=== PATIENT | male | born 1965 | race Caucasian/White ===

== ENCOUNTER 2024-04-30 20:34 | Emergency (ER) | payer OTHER, SELFPAY ==
[2024-04-30 20:49] VITALS: BP 153/89
--- NOTE | 2024-04-30 23:54 | ED.GENMED ---
History of Present Illness
<Walsh (Lenka) Geraldosylvester MINISTERIO - Last Filed: 05/01/24 04:51>
General
Chief Complaint: Skin Problem
Source: patient
Exam Limitations: none
Time Seen by Provider: 04/30/24 23:54
Nursing documentation reviewed up to this point in time: agreed with
History of Present Illness
History of Present Illness:
Pt is a 58 yo male with no pertinent PMHx who presents to the ED with concerns over L forearm bruising and tightness x 4d. Pt states last Monday (04/26) he donated platelets with the Quat-E at 1100. The R arm was used as the outlet, he denies
complications with the R AC IV puncture. His L AC was used as the return. During the donation, the rivet spinner noticed his IV infiltrated. Elbow flexion 'felt tight' and he describes decreased L arm flexion ROM. He notes [id number]-procedure he
developed chills and felt weak. 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
L arm. By the end of the day he developed a 5cm x 10cm oval bruise form near the first puncture site on the L arm. He had some medical friends evaluate him and suggest it may be a reaction to the 'chemicals injected during plasma donation to thin
the returning blood'. Pt presents concerned that the bruise changed from a blue/brown color to a dusky red color within the day. He denies any other arm injury, any lightheadedness, dizziness, fevers, numbness or tingling to his digits, decreased
hand strength to either hand. Endorses feeling chills today.
Upon arrival, the RN noticed a red streak originating from the IV puncture site on the R AC. He notes a superficial 3-4cm healing laceration to his R anterior forearm from the tree work on Monday, that aligns with the distal end of the red streaking.
Pt takes fish oil capsules and vitamin D daily. He stopped his fish oil Monday when he noticed the L arm bruising.
No hx of blood disorders or clotting.
Past History
<MINISTERIO Cha (Lenka) - Last Filed: 05/01/24 04:51>
Past History
ED Past Medical History: None
ED Past Surgical History: Orthopedic
Social History
Tobacco: Non-smoker
Alcohol: Daily (one beer a night)
Personal:
Living: with family
Employment: Employed
Phy Exam
<MINISTERIO Cha (Lenka) - Last Filed: 05/01/24 04:51>
General Physical Exam
General Presentation: well appearing and no apparent distress
General age: appears stated age
General Skin: warm and dry
General Habitus: normal
General Mental: alert
General Hydration: appears well hydrated
Cardiovascular Exam
Cardiovascular Exam: regular rate/rhythm and normal peripheral pulses
Pulmonary Exam
Pulmonary Exam: lungs clear, no respiratory distress, no rhonchi and no cough
Neurological Exam
Neurological Exam: alert, oriented x3, no sensory deficits and speech normal
Musculoskeletal Exam
Musculoskeletal Exam: neuro vasc intact
Skin Exam
Skin Exam: other (faint red streaking from R antecubital fossa to distal third of R forearm. 10cm x 5cm ecchymosis to L antecubital fossa to proximal third of Lforearm.)
Course
<MINISTERIO Cha (Lenka) - Last Filed: 05/01/24 04:51>
Orders/Labs/Results
Orders:
Orders
05/01/24 00:00
US Periph Venous UPPER Ext Dalton Urgent
Reason For Exam: R streaking, L swelling after IV attempts
Vital Signs
Initial and Last Documented VS:
Initial Vital Signs
Temp Pulse Resp BP Pulse Ox
98.6 F 85 19 153/89 99
04/30/24 20:49 04/30/24 20:49 04/30/24 20:49 04/30/24 20:49 04/30/24 20:49
Last Documented Vital Signs
Temp Pulse Resp BP Pulse Ox
98.1 F 78 18 124/72 96
05/01/24 00:00 05/01/24 02:00 05/01/24 02:00 05/01/24 02:00 05/01/24 02:00
<Osmel Perez DO - Last Filed: 05/01/24 01:39>
Orders/Labs/Results
Orders:
Orders
05/01/24 00:00
US Periph Venous UPPER Ext Dalton Urgent
Reason For Exam: R streaking, L swelling after IV attempts
Vital Signs
Initial and Last Documented VS:
Initial Vital Signs
Temp Pulse Resp BP Pulse Ox
98.6 F 85 19 153/89 99
04/30/24 20:49 04/30/24 20:49 04/30/24 20:49 04/30/24 20:49 04/30/24 20:49
Last Documented Vital Signs
Temp Pulse Resp BP Pulse Ox
98.1 F 78 18 124/72 96
05/01/24 00:00 05/01/24 02:00 05/01/24 02:00 05/01/24 02:00 05/01/24 02:00
<MINISTERIO Cha (Lenka) - Last Filed: 05/01/24 04:51>
MDM/Problems Addressed
Differential Diagnosis Includes:
DDx: phlebitis vs ecchymosis 2/2 IV puncture vs venous thrombosis
Will obtain B/L arm ultrasounds to evaluate venous structure.
<MINISTERIO Cha (Lenka) - Last Filed: 05/01/24 04:51>
*Critical Care Note
Total Time (30-74mins, 75-104mins- exclusive of procedures): Not Applicable
<Osmel Perez DO - Last Filed: 05/01/24 01:39>
Update Note
Update Note:
Bilateral upper extremity ultrasound negative by verbal report
ED Attending Note
<MINISTERIO Cha (Lenka) - Last Filed: 05/01/24 04:51>
-
Portions of this chart may have been created with voice recognition software.� Occasional wrong word or��sound alike� substitutions may have occurred due to the inherent limitations of voice recognition software.
<Osmel Perez DO - Last Filed: 05/01/24 01:39>
ED Attending Note
Patient seen and examined by attending physician: Yes
I performed the substantive portion of visit, reviewed & personally made and approve the management plan that is documented in note by myself or MADHURI.: Yes
ED Attending Note:
Pleasant 58-year-old male that presents with bruising on his left arm. He donated platelets on Monday. The catheter in his left arm infiltrated. They switched veins and continue with the procedure. He did have some bruising. Today turned red.
He videoconference with a primary care provider who advised him to come into the emergency department to be evaluated. Patient denies any pain or any arm injury. Denies numbness or tingling. Patient was seen in conjunction with the PA student. I
have reviewed and agree with the history and treatment plan presented. On my independent physical exam, patient is awake, alert, and oriented x3. There is a small area of erythema that is blanchable on the left forearm. Patient states that this
initially started out as ecchymosis but then turned red. Good distal pulses. Full range of motion in the arm and elbow.
I feel that this is either reaction to the infiltration or just ecchymosis from the IV. Patient will continue to observe it. There is no evidence of DVT on ultrasound. Patient will follow-up as needed.
Discharge Plan
Departure
Patient Disposition: Home (Routine Discharge)
Date of Disposition: 05/01/24
Time of Disposition: 01:37
Patient with high blood pressure during this ER visit?: Yes
Condition: Good
Discharge Problem:
IV infiltration
Instructions: Wound Care (DC), BLOOD PRESSURE
Referrals:
Ej Bennett DO [Family Provider] -
Activity Restrictions/Additional Instructions:
It was a pleasure meeting you and taking part in your care. We hope for your continued healing and wellness.
Please read discharge instructions in their entirety. However, they are for general education and may not describe your exact diagnosis at discharge. Information on your ER visit and medical conditions were discussed with you along with appropriate
follow up information...
If indicated, please take your medications as instructed and indicated on discharge paperwork.
Please schedule a follow up appointment as directed. Call to schedule an appointment
Please return to the emergency department with ANY change in, persisting, or worsening of symptoms. If any of your symptoms do not improve, or persist, or become more severe within 6-12 hours, please return to the emergency department for further
care.
Please return to the emergency department if you develop a headache, neck pain/stiffness, fever greater than 100.4F, chest pain, shortness of breath, persistent nausea, vomiting, slurred speech, difficulty walking, numbness/tingling, weakness, signs
of infection or any other symptoms that are worrisome to you.
If you have any questions or concerns please do not hesitate to call the Hospital at or E-mail me directly at [email or web address]
Interventions
Interventions:
*Risk Screen - Suicide Last Done: 04/30/24 20:49
*General Assessment Last Done: 04/30/24 20:49
*Neglect/Abuse Screening Last Done: 04/30/24 20:49
ED- Fall Risk Assessment Last Done: 04/30/24 23:55
*ED COVID-19 Vaccine History Last Done: 04/30/24 20:49
*Nursing Disposition Last Done: 05/01/24 02:00
ED-Skin Assessment Last Done: 04/30/24 23:55
Discharge Date and Time
Discharge Date/Time: 05/01/24 02:00
Print Language: MALAWIAN
[2024-05-01] VITALS: BP 128/72
--- NOTE | 2024-05-01 00:01 | EDRN ---
[place]asion [place].
[2024-05-01 02:00] VITALS: BP 124/72
== END 2024-05-01 02:00 | disposition home or self-care (01) ==
LOC: EMR 20:34
PROVIDERS: EMERGENCY PHYSICIAN Student in an Organized Health Care Education/Training Program; FAMILY PHYSICIAN Family Medicine
DX: T80.89XA Other complications following infusion, transfusion and therapeutic injection, initial encounter (principal); S50.12XA Contusion of left forearm, initial encounter; R53.83 Other fatigue; R68.83 Chills (without fever); R53.1 Weakness; Y84.8 Other medical procedures as the cause of abnormal reaction of the patient, or of later complication, without mention of misadventure at the time of the procedure; S51.811A Laceration without foreign body of right forearm, initial encounter; X58.XXXA Exposure to other specified factors, initial encounter; Y93.89 Activity, other specified; R03.0 Elevated blood-pressure reading, without diagnosis of hypertension
CPT/HCPCS: 99284; 93970